=== PATIENT | male | born 2000 | race Hispanic/Latino ===

== ENCOUNTER → 2024-11-26 | Outpatient (CLI) | payer BC ==
--- NOTE | 2024-11-26 16:18 | HMCIMG ---
Exam Type: US RENAL SONOGRAM Clinical Information: Hematuria, unspecified Comparison: None Findings: Both kidneys are hyperechoic consistent with renal parenchymal disease. There is a focus of parenchymal increased echogenicity of the right renal upper pole region. In the appropriate clinical context, this could represent pyelonephritis. No hydronephrosis. No calculi. No renal masses. Normal prostatic volume. IMPRESSION: No hematoma identified. Possible right pyelonephritis.
== END | disposition home or self-care (01) ==
LOC: RAH 15:17
PROVIDERS: ATTEND Nurse Practitioner Family
DX: R31.9 Hematuria, unspecified (principal)
CPT/HCPCS: 76770